=== PATIENT | female | born 1960 | race Caucasian/White ===

== ENCOUNTER 2016-10-27 12:17 | Inpatient (IN) | payer MEDICAID ==
[~2016-10-27] VITALS: Ht 162.6 cm; Wt 94.6 kg
[2016-10-27] MEDS: DUONEB INH SCH ×6 (12:55→23:38)
[2016-10-27 13:30] VITALS: BP_SYST 130; BP_SYST 164; RESP 16; TEMP 98.3; Ht 162.6 cm; Wt 94.6 kg
[2016-10-27 15:07] VITALS: RESP 20
[2016-10-27 15:41] VITALS: BP_SYST 117; RESP 14; TEMP 98
[2016-10-27] MEDS ORDERED: NEB-ALBUTEROL 2.5 MG/3 ML INH PRN (18:55)
[2016-10-27] MEDS: NEB-BROVANA 15 MCG/2 ML INH SCH (19:48)
[2016-10-27] MEDS: NEB-BUDESONIDE 0.5 MG INH SCH (19:49)
[2016-10-27] MEDS: METHYLPRED SOD SUCC 40 MG VIAL IV SCH (19:55)
[2016-10-27] MEDS: CEFTRIAXONE 1 GM in SODIUM CHLORIDE 0.9% 50 ML IV SCH (19:55)
[2016-10-27 20:04] VITALS: BP_SYST 143; RESP 16; TEMP 98.2
[2016-10-27] MEDS: AZITHROMYCIN 500 MG in SODIUM CHLORIDE 0.9% 250 ML IV SCH (21:15)
[2016-10-27 23:05] VITALS: BP_SYST 115; RESP 16; TEMP 98.4
[2016-10-28] MEDS ORDERED: BUSPIRONE HCL 5 MG TAB PO PRN ×2 (00:05→21:00)
[2016-10-28] MEDS ORDERED: ALU/MAG/SIM 30 ML UDC PO ONE (05:50)
[2016-10-28] MEDS: DUONEB INH SCH ×7 (06:23→23:37)
[2016-10-28] MEDS: NEB-BROVANA 15 MCG/2 ML INH SCH ×2 (06:23→17:04)
[2016-10-28] MEDS: NEB-BUDESONIDE 0.5 MG INH SCH ×2 (06:23→17:05)
[2016-10-28 07:30] VITALS: BP_SYST 116; RESP 16; TEMP 98.8
[2016-10-28] MEDS: AZITHROMYCIN 500 MG in SODIUM CHLORIDE 0.9% 250 ML IV SCH (09:07)
[2016-10-28] MEDS: CEFTRIAXONE 1 GM in SODIUM CHLORIDE 0.9% 50 ML IV SCH (09:07)
[2016-10-28] MEDS: METHYLPRED SOD SUCC 40 MG VIAL IV SCH (09:07)
[2016-10-28 11:31] VITALS: BP_SYST 124; RESP 16; TEMP 98.7
[2016-10-28] MEDS: FERROUS SULF 325 MG TAB PO SCH (13:08)
[2016-10-28] MEDS: BUPROPION XL 150 MG TAB PO SCH (13:08)
[2016-10-28] MEDS: FLUTICASONE 0.05% NA BTL NARE EACH SCH (13:08)
[2016-10-28] MEDS: ARIPiprazole 15 MG TAB PO SCH (13:08)
[2016-10-28] MEDS: FAMOTIDINE 20 MG TAB PO SCH ×2 (13:09→19:48)
[2016-10-28] MEDS: amLODIPine 10 MG TAB PO SCH (13:09)
[2016-10-28] MEDS: CETIRIZINE 10 MG TAB PO SCH (13:09)
[2016-10-28] MEDS: SPIRONOLACTONE 25 MG TAB PO SCH (13:09)
[2016-10-28 15:17] VITALS: BP_SYST 115; RESP 16; TEMP 99.2
[2016-10-28 19:14] VITALS: BP_SYST 109; TEMP 98.3
[2016-10-28] MEDS: ACETAMINOPHEN 500 MG TAB PO PRN (19:48)
[2016-10-28] MEDS ORDERED: Atorvastatin 20 MG TAB PO SCH (21:00)
[2016-10-28] MEDS ORDERED: PANTOPRAZOLE 40 MG TAB PO SCH (21:00)
[2016-10-28] MEDS ORDERED: TRAZODONE 50 MG TAB PO SCH (21:00)
[2016-10-29 00:10] VITALS: BP_SYST 117; RESP 18; TEMP 98.3
[2016-10-29 03:44] VITALS: BP_SYST 116; RESP 18; TEMP 98.3
[2016-10-29] MEDS: NEB-BUDESONIDE 0.5 MG INH SCH (06:43)
[2016-10-29] MEDS: NEB-BROVANA 15 MCG/2 ML INH SCH (06:43)
[2016-10-29] MEDS: DUONEB INH SCH ×3 (06:44→15:00)
[2016-10-29 07:31] VITALS: BP_SYST 102; RESP 16; TEMP 98.2
[2016-10-29] MEDS: CEFTRIAXONE 1 GM in SODIUM CHLORIDE 0.9% 50 ML IV SCH (08:49)
[2016-10-29] MEDS: FLUTICASONE 0.05% NA BTL NARE EACH SCH (08:49)
[2016-10-29] MEDS: AZITHROMYCIN 500 MG in SODIUM CHLORIDE 0.9% 250 ML IV SCH (08:49)
[2016-10-29] MEDS: CETIRIZINE 10 MG TAB PO SCH (08:50)
[2016-10-29] MEDS: BUPROPION XL 150 MG TAB PO SCH (08:50)
[2016-10-29] MEDS: ARIPiprazole 15 MG TAB PO SCH (08:50)
[2016-10-29] MEDS: FAMOTIDINE 20 MG TAB PO SCH (08:50)
[2016-10-29] MEDS: METHYLPRED SOD SUCC 40 MG VIAL IV SCH (08:50)
[2016-10-29] MEDS: amLODIPine 10 MG TAB PO SCH (08:51)
[2016-10-29] MEDS: FERROUS SULF 325 MG TAB PO SCH (08:51)
[2016-10-29] MEDS: SPIRONOLACTONE 25 MG TAB PO SCH (08:51)
[2016-10-29 11:32] VITALS: BP_SYST 110; RESP 16; TEMP 98.6
[2016-10-29] MEDS: ACETAMINOPHEN 500 MG TAB PO PRN (15:13)
[2016-10-29 15:24] VITALS: BP_SYST 108; RESP 16; TEMP 98.8
[2016-10-29 17:08] VITALS: BP_SYST 108; RESP 16; TEMP 98.8
== END 2016-10-29 17:49 | disposition home or self-care (01) | DRG 192 ==
LOC: ENRESERVTM → ENRESERVDT → PCU2 12:53 → ENPENDDIS 12:53
PROVIDERS: ADMIT Family Medicine; ATTEND Family Medicine
CPT/HCPCS: 71020; 80053; 84484; 85025; 87040; 87278; 87299; 87804; 93005; 94640; 94799; 99232